=== PATIENT | male | born 1940 | race Caucasian/White ===

== ENCOUNTER → 2017-12-11 | Outpatient (CLI) | payer OTHER ==
[~2017-12-11] MED LIST: GADOBUTROL 10 ML VIAL IVP ONE
== END ==
LOC: FIMAGING 15:15
PROVIDERS: ATTEND Urology
DX: N40.0 Benign prostatic hyperplasia without lower urinary tract symptoms (principal); N41.9 Inflammatory disease of prostate, unspecified; N32.3 Diverticulum of bladder; N28.89 Other specified disorders of kidney and ureter
CPT/HCPCS: 72197; 76377; A9585; 82565-PO

== ENCOUNTER → 2018-02-10 | Outpatient (CLI) | payer OTHER ==
[~2018-02-10] MED LIST changes: -GADOBUTROL 10 ML VIAL IVP ONE; +IOPAMIDOL (ISOVUE-300) 100 ML BTL ONE
== END ==
LOC: FIMAGING 10:27
PROVIDERS: ATTEND Urology
DX: N32.89 Other specified disorders of bladder (principal); N32.3 Diverticulum of bladder; N40.1 Benign prostatic hyperplasia with lower urinary tract symptoms; N13.30 Unspecified hydronephrosis
CPT/HCPCS: 74178; Q9967

== ENCOUNTER 2018-03-10 13:01 | Day surgery (SDC) | payer OTHER ==
[2018-03-10] MEDS ORDERED: LR 1,000 ML IV ONE (13:48)
--- NOTE | 2018-03-10 13:51 | PDANEPAE ---
ANE History of Present Illness bladder tumor ANE Past Medical History - Cardiovascular History Hx Hypertension: Yes Hx Arrhythmias: No Hx Coronary Artery / Peripheral Vascular Disease: No Hx CHF / Valvular Disease: Yes Hx Palpitations: No Cardiovascular History Comment: mitral valve prolapse - Pulmonary History Hx COPD: No Hx Asthma/Reactive Airway Disease: No Hx Recent Upper Respiratory Infection: No Hx Oxygen in Use at Home: No Hx Sleep Apnea: No Sleep Apnea Screening Result - Last Documented: Positive Pulmonary History Comment: HALEY triggers only - Neurologic History Hx Cerebrovascular Accident: No Hx Seizures: No Hx Dementia: No - Endocrine History Hx Diabetes: No Hypothyroid: No Hyperthyroid: No Obesity: no - Renal History Hx Renal Disorders: Yes Renal History Comment: bladder tumor. BPH - Liver History Hx Hepatic Disorders: No - Neurological & Psychiatric Hx Hx Neurological and Psychiatric Disorders: No - Cancer History Hx Cancer: No - Congenital Disorder History Hx Congenital Disorders: No - GI History GERD: no Hx Gastrointestinal Disorders: No Gastrointestinal History Comment: occasional constipation - Other Health History Other Health History: wears glasses for reading. has upper and lower bridge - Chronic Pain History Chronic Pain: No - Surgical History Prior Surgeries: colonoscopy ANE Review of Systems Review of systems is: negative Review of Systems: - Exercise capacity METS (RN): 4 METS ANE Patient History - Allergies Allergies/Adverse Reactions: No Known Allergies Allergy (Verified 03/06/18 15:43) - Home Medications Home medications: home medication list seen and reviewed Home Medications: Atenolol 03/06/18 [Last Taken Unknown] Tamsulosin HCl 03/06/18 [Last Taken Unknown] - NPO status NPO Status: no food or drink >8 hours - Anes Hx Anes Hx: no prior problems - Smoking Hx Smoking Status: Former smoker Marijuana use: No - Alcohol Use Alcohol Use: Rarely - Family Anes Hx Family Anes Hx: none Family Hx Anesthesia Complications: none ANE Labs/Vital Signs - Vital Signs Height: 167.64 cm Weight: 56.699 kg ANE Physical Exam - Airway Neck exam: FROM Mallampati Score: Class 2 Mouth exam: normal dental/mouth exam - Pulmonary Pulmonary: no respiratory distress, clear to auscultation - Cardiovascular Cardiovascular: regular rate and rhythym, no murmur, rub, or gallop - ASA Status ASA Status: II ANE Anesthesia Plan Anesthesia Plan: GA w LMA
[2018-03-10] MEDS ORDERED: LIDOCAINE 2% JELLY 20 ML (UROJECT) ONE (15:12)
[2018-03-10] MEDS ORDERED: fentaNYL 100 MCG/2 ML INJ ONE (15:17)
[2018-03-10] MEDS ORDERED: LIDOCAINE 2% 2 ML INJ ONE (15:17)
[2018-03-10] MEDS ORDERED: PROPOFOL 200 MG/20 ML VIAL ONE (15:17)
[2018-03-10] MEDS ORDERED: ceFAZolin 3 GM in D5W 100 ML IV ONE (15:20)
[2018-03-10] MEDS ORDERED: OPIUM/BELLADONNA ALKALO SUPP PR PRN (15:20)
[2018-03-10] MEDS ORDERED: ACETAMINOPHEN 325 MG TAB PO PRN (15:22)
[2018-03-10] MEDS ORDERED: HYDROmorphONE/DILAUDID 1 MG/ML INJ IVP PRN (15:22)
[2018-03-10] MEDS ORDERED: HYDROCODONE/APAP 5/325 TAB PO PRN (15:22)
[2018-03-10] MEDS ORDERED: ONDANSETRON 4 MG/2 ML VIAL IVP PRN (15:22)
--- NOTE | 2018-03-10 15:22 | PDHPUP ---
History & Physical Update H&P update statement: This history and physical update is based on an assessment of the patient which was completed after admission or registration (within 24 hours), but prior to the surgery/procedure. H&P update: H&P reviewed & patient examined, changes noted (He now desires TURP. I reviewed risks and he agrees to proceed. Hx prostate ca so this will be a channel TURP. )
[2018-03-10] MEDS ORDERED: D5W LR 1,000 ML IV SCH (15:30)
[2018-03-10] MEDS ORDERED: ceFAZolin 2 GM/DEXTROSE 100 ML IV ONE (15:30)
[2018-03-10] MEDS ORDERED: NALOXONE HCL 0.4 MG/ML INJ IVP PRN (15:53)
[2018-03-10] MEDS ORDERED: MEPERIDINE 25 MG/0.5 ML AMP IVP PRN (15:53)
[2018-03-10] MEDS ORDERED: fentaNYL 100 MCG/2 ML INJ IVP PRN (15:53)
[2018-03-10] MEDS ORDERED: PROMETHAZINE HCL 25 MG/ML INJ IVP PRN (15:53)
[2018-03-10] MEDS ORDERED: HYDROmorphONE/DILAUDID 2 MG/ML INJ IVP PRN (15:53)
--- NOTE | 2018-03-10 15:53 | POSTANESTH ---
Post Anesthetic Evaluation Cardiovascular Status: Normal, Stable Respiratory Status: Normal, Stable Level of Consciousness/Mental Status: Can Participate in Eval Pain Control: Adequate, Prn Tx Ordered Nausea/Vomiting Control: Adequate, Prn Tx Ordered Complications Possibly Related to Anesthesia: None Noted
[2018-03-10] MEDS ORDERED: ONDANSETRON 4 MG/2 ML VIAL ONE (15:55)
[2018-03-10] MEDS ORDERED: OPIUM/BELLADONNA ALKALO SUPP PR ONE (16:05)
--- NOTE | 2018-03-10 16:41 | POSTOPPROG ---
Post Op Note Date of Operation: 03/10/18 Surgeon: Azul Real Anesthesiologist: Jackie Anesthesia: LMA Pre-op Diagnosis: bladder tumor and enlarged prostate w known prostate ca Post-op Diagnosis: concern for UTI, same Indication: bladder tumor and enlarged prostate w known prostate ca Procedure: cystoscopy, removal of tumor w cold cup biopsy Findings: small tumor <0.5mm, significant amount floating white sediment c/w UTI Inf/Abcess present in the surg proc area at time of surgery?: Yes Depth: Organ Space EBL: Minimal Complications: none, patient tolerated procedure well Specimen(s): bladder tumor
[2018-03-10 20:52] VITALS: BP 129/60
[2018-03-10] MEDS ORDERED: SENNOSIDES/DOCUSATE SODIUM TAB PO SCH (21:00)
--- NOTE | 2018-03-10 23:57 | GOP ---
DATE OF OPERATION: 03/10/2018 SURGEON: Azul Real MD ANESTHESIA: General. ANESTHESIOLOGIST: Harleen Mejia MD. PREOPERATIVE DIAGNOSIS: Bladder tumor and obstructing prostate with lower urinary tract symptoms. POSTOPERATIVE DIAGNOSIS: Bladder tumor and obstructing prostate with lower urinary tract symptoms al uyen with concern for urinary tract infection. PROCEDURE PERFORMED: Cystoscopy and cold cup biopsy removal of small bladder tumor. FINDINGS: SPECIMENS: Bladder tumor base and bladder tumor. ESTIMATED BLOOD LOSS: Minimal. INDICATIONS: The patient presented to my office with severe voiding symptoms. He is known to have a very large prostate, approximately 4-5 cm in length from the bladder neck to the veru, with large me rosie lobe and going into the bladder. He also was found on clinic cystoscopy to have a very small pa pillary appearing tumor that is less than 5 mm. We discussed in detail removing the bladder tumor an d opening up the channel of the prostate. He does have a known history of prostate cancer, [place] 7 , diagnosed several years ago with a fairly stable PSA. He had elected to undergo both of these proc edures. He did have a urine sample given in my office last week, and it was negative for any infecti on. The risks of the procedure were discussed again in preop, including bleeding; infection; pain; i njury to the urethra, bladder, or ureter; small risk of urethral stricture; small risk of bladder nec k contracture; risk of injury to the bladder; need for subsequent procedures. He understood this and agreed to proceed. DESCRIPTION OF PROCEDURE: He was taken back to the cystoscopy suite, placed on the cystoscopy table in supine position. General anesthesia induced without complication. Time-out performed and core me asures satisfied including placement of a Danielle Hugger, SCDs, and administration of 2 g Ancef antibiot ics. He was brought to the end of the table, placed in dorsal lithotomy position. All pressure poin ts padded. Genitalia draped and prepped in the standard surgical fashion with Betadine. Visual obtu rator was used to enter the urethra and going to the bladder, and once in the bladder, I saw lots of floating white sediment. It was very cloudy. Visualization was very poor. I felt that there was po ssibly a UTI, which I had checked in my office last week and there was no urinary tract infection. S o, with this finding, I was very uncomfortable doing the transverse resection of the prostate as he c ould have complications if there was indeed infection. I took a urine sample at this stage and sent it off for culture and sensitivity. I did decide to remove the bladder tumor which was very tiny. I decided to do a cold cup of this bladder tumor when I was switching out the loop for the cold cup bi opsy forceps. The bladder tumor was very small and then when I went back in much of it had flown off into the bladder, but there was still some base left and a little bit of the papillary tumor left at tached to the right posterior diverticulum. I was able to biopsy this in its entirety and removed it and sent it to Pathology. I took another piece right next to it just to make sure I had gotten the entire area. Then I reassembled a loop of the TURIs resectoscope and used the cautery portion to cau terize the area that I had just biopsied. At this point hemostasis was excellent. Again, I was very uncomfortable doing the TURP, given the appearance of the sediment and floating in his bladder, and at this point I emptied his bladder, removed the scope, and placed lidocaine jelly and belladonna opi um and considered the procedure complete. He was awoken from anesthesia and transferred to PACU in g ood condition. My plan is to give him antibiotics for 5 days, see what is growing, and follow that a nd then have him return to my office, prophylactically put a catheter in for 3 days so all of his uri ne drains and also put him on antibiotics before the next scheduled procedure which will be the TURP. I did talk to his son and him about this, and they both understood this change in the plan and they agreed with that decision. COMPLICATIONS: None. /[id number]/MODL
== END 2018-03-10 20:40 | disposition home or self-care (01) ==
LOC: FSGY 13:01 → F1N 15:22 → UNDOADMOB 15:22 → FSGY 20:30
PROVIDERS: ATTEND Urology
PROC: 0TBB8ZZ Excision of Bladder, Via Natural or Artificial Opening Endoscopic (ICD-10-PCS; principal; 2018-03-10 14:45)
DX: N32.89 Other specified disorders of bladder (principal); N21.0 Calculus in bladder; R82.998 Other abnormal findings in urine; N40.1 Benign prostatic hyperplasia with lower urinary tract symptoms; R33.9 Retention of urine, unspecified; C61 Malignant neoplasm of prostate; I11.0 Hypertensive heart disease with heart failure; I50.9 Heart failure, unspecified; I34.1 Nonrheumatic mitral (valve) prolapse; Z87.891 Personal history of nicotine dependence
CPT/HCPCS: 82365-90; J0690; J2405; J2704; J3010

== ENCOUNTER 2018-05-08 06:10 | Observation (INO) | payer OTHER ==
[2018-05-08] MEDS ORDERED: OPIUM/BELLADONNA ALKALO SUPP PR PRN (06:21)
[2018-05-08] MEDS ORDERED: ceFAZolin 2 GM/DEXTROSE 100 ML IV ONE (06:21)
[2018-05-08] MEDS ORDERED: LR 1,000 ML IV ONE (06:22)
[2018-05-08] MEDS ORDERED: LIDOCAINE 2% 2 ML INJ ONE (06:56)
[2018-05-08] MEDS ORDERED: ONDANSETRON 4 MG/2 ML VIAL ONE (06:56)
[2018-05-08] MEDS ORDERED: DEXAMETHASONE 4 MG/ML VIAL ONE (06:56)
[2018-05-08] MEDS ORDERED: PROPOFOL 200 MG/20 ML VIAL ONE (06:57)
[2018-05-08] MEDS ORDERED: fentaNYL 100 MCG/2 ML INJ ONE (06:57)
--- NOTE | 2018-05-08 07:12 | PDANEPAE ---
ANE Past Medical History - Cardiovascular History Hx Hypertension: No Hx Arrhythmias: No Hx Coronary Artery / Peripheral Vascular Disease: No Hx CHF / Valvular Disease: Yes Hx Palpitations: No Cardiovascular History Comment: mitral valve prolapse. Patient denies CHF pr HTN. Takes atenolol - Pulmonary History Hx COPD: No Hx Asthma/Reactive Airway Disease: No Hx Recent Upper Respiratory Infection: No Hx Oxygen in Use at Home: No Hx Sleep Apnea: No Sleep Apnea Screening Result - Last Documented: Positive Pulmonary History Comment: HALEY triggers only - Neurologic History Hx Cerebrovascular Accident: No Hx Seizures: No Hx Dementia: No - Endocrine History Hx Diabetes: No - Renal History Hx Renal Disorders: Yes Renal History Comment: bladder tumor. BPH - Liver History Hx Hepatic Disorders: No - Neurological & Psychiatric Hx Hx Neurological and Psychiatric Disorders: No - Cancer History Hx Cancer: No - Congenital Disorder History Hx Congenital Disorders: No - GI History Hx Gastrointestinal Disorders: No Gastrointestinal History Comment: occasional constipation - Other Health History Other Health History: wears glasses for reading. has upper and lower bridge - Chronic Pain History Chronic Pain: No - Surgical History Prior Surgeries: CYSTO,BX BLADDER TUMOR 03/10/18. colonoscopy ANE Review of Systems Review of Systems: - Exercise capacity METS (RN): 6 METS ANE Patient History - Allergies Allergies/Adverse Reactions: No Known Allergies Allergy (Verified 03/06/18 15:43) - Home Medications Home Medications: Atenolol 03/06/18 [Last Taken 05/07/18] Tamsulosin HCl 03/06/18 [Last Taken 05/07/18] - NPO status NPO Since - Liquids (Date): 05/07/18 NPO Since - Liquids (Time): 19:00 NPO Since - Solids (Date): 05/07/18 NPO Since - Solids (Time): 19:00 - Smoking Hx Smoking Status: Former smoker - Family Anes Hx Family Hx Anesthesia Complications: none ANE Labs/Vital Signs - Vital Signs Blood Pressure: 121/72 Heart Rate: 57 Respiratory Rate: 18 O2 Sat (%): 92 Height: 167.64 cm Weight: 56.699 kg ANE Physical Exam - Airway Neck exam: FROM Mallampati Score: Class 1 Mouth exam: normal dental/mouth exam - Pulmonary Pulmonary: no respiratory distress, no rales or rhonchi, clear to auscultation - Cardiovascular Cardiovascular: regular rate and rhythym, no murmur, rub, or gallop - ASA Status ASA Status: II ANE Anesthesia Plan Anesthesia Plan: GA w LMA
--- NOTE | 2018-05-08 07:24 | PDHPUP ---
History & Physical Update H&P update statement: This history and physical update is based on an assessment of the patient which was completed after admission or registration (within 24 hours), but prior to the surgery/procedure. H&P update: H&P reviewed & patient examined, no change in patient's condition since H&P completed
[2018-05-08] MEDS ORDERED: ONDANSETRON 4 MG/2 ML VIAL IVP PRN ×2 (07:32→09:47)
[2018-05-08] MEDS ORDERED: LR 500 ML IV PRN (07:32)
[2018-05-08] MEDS ORDERED: PHENYLEPHRINE HCL 100 MCG/ML SYR IVP PRN (07:32)
[2018-05-08] MEDS ORDERED: HYDROmorphONE/DILAUDID 2 MG/ML INJ IVP PRN (07:32)
[2018-05-08] MEDS ORDERED: fentaNYL 100 MCG/2 ML INJ IVP PRN (07:32)
[2018-05-08] MEDS ORDERED: PROMETHAZINE HCL 25 MG/ML INJ IVP PRN (07:32)
[2018-05-08] MEDS ORDERED: NALOXONE HCL 0.4 MG/ML INJ IVP PRN (07:32)
[2018-05-08] MEDS ORDERED: METOCLOPRAMIDE 10 MG/2 ML VIAL IVP PRN (07:32)
[2018-05-08] MEDS ORDERED: MEPERIDINE 25 MG/0.5 ML AMP IVP PRN (07:32)
[2018-05-08] MEDS ORDERED: ePHEDrine SULFATE 25 MG/5 ML SYR ONE (07:52)
[2018-05-08] MEDS ORDERED: OPIUM/BELLADONNA ALKALO SUPP PR ONE (08:11)
[2018-05-08] MEDS ORDERED: LIDOCAINE 2% JELLY 20 ML (UROJECT) ONE (08:11)
[2018-05-08] MEDS ORDERED: HYDROmorphONE/DILAUDID 1 MG/ML INJ IVP PRN (09:47)
[2018-05-08] MEDS ORDERED: HYDROCODONE/APAP 5/325 TAB PO PRN (09:47)
--- NOTE | 2018-05-08 09:47 | POSTOPPROG ---
Post Op Note Date of Operation: 05/08/18 Surgeon: Azul Real Anesthesiologist: Martha Pre-op Diagnosis: BPH w urinary retention Post-op Diagnosis: same Indication: urinary retention, LUTs Procedure: cysto, TURPis Findings: large trilobar hypertrophy prostate Inf/Abcess present in the surg proc area at time of surgery?: No EBL: 100-500 Complications: None, pt tolerated procedure well. Drains: Other (moore) Specimen(s): prostate chips
[2018-05-08] MEDS ORDERED: D5W LR 1,000 ML IV SCH (10:00)
--- NOTE | 2018-05-08 10:18 | GOP ---
[f rep st] OPERATIVE REPORT DATE OF OPERATION: 05/08/2018 SURGEON: Azul Real MD ANESTHESIA: General. ANESTHESIOLOGIST: Dr. Thomas. PREOPERATIVE DIAGNOSIS: Benign prostatic hypertrophy with lower urinary tract symptoms and urinary r etention. POSTOPERATIVE DIAGNOSIS: Benign prostatic hypertrophy with lower urinary tract symptoms and urinary retention. PROCEDURE PERFORMED: Trans-cystoscopy and transurethral resection of prostate in saline. FINDINGS: SPECIMENS: Prostate chips. ESTIMATED BLOOD LOSS: 150 mL. INDICATIONS: Large-volume retention, large multiple bladder diverticula and bladder outlet obstructi on. DESCRIPTION OF PROCEDURE: He was taken back to the cystoscopy suite, placed on the cystoscopy table in a supine position. General anesthesia induced without complication. A time-out performed. Core measures satisfied including placement of a Danielle Hugger, SCDs and administration 2 g Ancef antibiotic s. He was brought to the end of the table, placed in dorsal lithotomy position. All pressure points padded. Genitalia draped and prepped in a standard surgical fashion with Betadine. A rigid visual obturator easily cannulated the urethral meatus and was advanced atraumatically into the bladder. Pa n cystoscopy performed, and there were massive trabeculations and multiple diverticula and cellules. The right and left ureteral orifices were identified. There was extremely obstructing prostate tiss ue with trilobar hypertrophy. I started resection well away from the right ureteral orifice and made a trough from at the 7 o'clock position in the posterior tissue. I did the same with the right. Th en, I removed the intervening tissue to the veru, kept the veru and the ureteral orifices in my visio n during the resection and did not violate any of these structures. I then removed tissue in the lef t lateral lobe, then the right lateral lobe and then the anterior lobe. At the end of the procedure, he was wide-open when sitting at the veru. Several of the chips came out with Ellik evacuation, but I did have to remove several manually with my scope because they were caught in the diverticula. Bu t at the end I felt all chips had been removed, and I used electrocautery liberally throughout the ca se, and hemostasis was excellent at the end. At this point, hemostasis was excellent. I removed the scope and then placed a 24-Kinyarwanda 3-way Boykin catheter with instillation of lidocaine jelly prior. Irrigant was clear. I irrigated manually for 250 mL and irrigant remained clear. Connected the cont inuous bladder irrigation, and it remained clear. At this point, I placed a belladonna opium supposi tory and considered the procedure complete. He was awoken from anesthesia and transferred to PACU in good condition. COMPLICATIONS: None. INDICATIONS: The patient presented to my office with severe lower urinary tract symptoms. We did a cystoscopy, found a small bladder tumor, which I removed on a prior procedure, and he presents today for resection of his prostate for very obstructing urinary symptoms. He and his son have been seen i n my office multiple times, and we have discussed the risks of this procedure including bleeding, inf ection, pain, injury to the urethra, the bladder, the ureters, the ureteral orifices, small risk of b ladder neck contracture or urethral stricture, risk of injury to surrounding tissues, need for subseq uent procedures, and he understood these risks and agreed to proceed. /[id number]/MODL
[2018-05-08] MEDS: SENNOSIDES/DOCUSATE SODIUM TAB PO SCH (22:09)
[2018-05-09 08:31] VITALS: BP 108/58
[2018-05-09] MEDS: SENNOSIDES/DOCUSATE SODIUM TAB PO SCH (08:55)
--- NOTE | 2018-05-09 10:49 | ASMTLACE ---
FORDE Length of stay for Answers: 1 day current admission Acuity / Level of Answers: No Care: Did the patient have an inpatient admission? Comorbidities - select Answers: Congestive heart failure all that apply # of Emergency department Answers: 0 visits in the last 6 months Score: 3 Date Signed: 05/09/2018 10:49 AM Electronically Signed By:Judy Saunders RN
--- NOTE | 2018-05-09 10:51 | ASMTCMCOM ---
CM Note CM Note Notes: Pt admitted for scheduled surgery. Will dc home w/support of , CM available for any changes. DC Plan: Independent Date Signed: 05/09/2018 10:50 AM Electronically Signed By:Judy Saunders RN
--- NOTE | 2018-05-09 11:34 | SOAPPROG ---
SOAP Progress Note Assessment/Plan: Assessment: POD 1 TURP Doing well. Plan: DC home w moore, voiding trail scheduled for 05/12/2018 in my office. Some blood in urine normal. He has my cell for any questions over weekend. 05/09/18 11:32 Subjective: NAEON Doing well Ambulating often. CBI weaned off, urine light pink. Objective: Vital Signs Temp Pulse Resp BP Pulse Ox 36.8 C 67 18 108/58 L 94 05/09/18 08:29 05/09/18 08:29 05/09/18 04:00 05/09/18 08:29 05/09/18 08:29 05/08/18 05/09/18 05/10/18 05:59 05:59 05:59 Intake Total 1802 1417 Output Total 3950 1175 Balance -2148 242 Gen NAD A&O CV regular Lungs normal effort Abd soft Ext warm moore in place, leg bag now connected. Urine light pink. ICD10 Worksheet Patient Problems: Problems Problem Status Onset BPH loc w urin obs/LUTS Acute - ICD10 Problem Qualifiers (1) BPH loc w urin obs/LUTS
== END 2018-05-09 13:24 | disposition home or self-care (01) ==
LOC: FSGY 06:10 → F3E 09:52
PROVIDERS: ADMIT Urology; ATTEND Urology
PROC: 0VT08ZZ Resection of Prostate, Via Natural or Artificial Opening Endoscopic (ICD-10-PCS; principal; 2018-05-08 07:30)
DX: N40.1 Benign prostatic hyperplasia with lower urinary tract symptoms (principal); R33.9 Retention of urine, unspecified; N32.3 Diverticulum of bladder; R97.20 Elevated prostate specific antigen [PSA]; I10 Essential (primary) hypertension; I34.1 Nonrheumatic mitral (valve) prolapse; Z87.891 Personal history of nicotine dependence
CPT/HCPCS: 52601; J0690; J1100; J2405; J2704; J3010

== ENCOUNTER 2018-09-25 14:33 | Day surgery (SDC) | payer OTHER | END 2018-09-25 21:26 | disposition home or self-care (01) | LOC: FSGY 14:33 ==